=== PATIENT | male | born 1935 | race Caucasian/White ===

== ENCOUNTER 2016-09-22 23:11 | Emergency (ER) | payer OTHER ==
[~2016-09-22] VITALS: Ht 167.6 cm; Wt 69.5 kg
[2016-09-23 00:58] VITALS: BP 143/83
[2016-09-23] MEDS ORDERED: LAMOTRIGINE100 MG PO (00:58)
== END 2016-09-23 00:58 | disposition home or self-care (01) ==
LOC: EME → EDBD 23:11 → EME 09-23 00:58
PROC: 0T9B70Z Drainage of Bladder with Drainage Device, Via Natural or Artificial Opening (ICD-10-PCS; principal; 2016-09-23)
DX: R33.9 Retention of urine, unspecified (principal); Z98.890 Other specified postprocedural states
CPT/HCPCS: 99281; 99284